=== PATIENT | male | born 1980 | race Caucasian/White ===

== ENCOUNTER 2019-12-29 06:20 | Day surgery (SDC) | payer BC ==
[2019-12-27 08:57] VITALS: BMI 22.8
[2019-12-29] MEDS ORDERED: BUPIVACAINE HCL/PF 2.5 MG/ML - 30 ML VIAL IJ ONE ×2 (07:40→10:29)
[2019-12-29] MEDS ORDERED: ONDANSETRON 4 MG/2 ML VIAL IVPUSH PRN (08:03)
[2019-12-29] MEDS ORDERED: MIDAZOLAM HCL 2 MG/2 ML SINGLE DOSE VIAL ONE (08:12)
[2019-12-29] MEDS ORDERED: KETOROLAC TROMETHAMINE 30 MG/1 ML VIAL ONE (08:13)
[2019-12-29] MEDS ORDERED: LIDOCAINE HCL/PF 2% SDV 5ML VIAL ONE (08:13)
[2019-12-29] MEDS ORDERED: ceFAZolin SODIUM 1 GM VIAL ONE (08:13)
[2019-12-29] MEDS ORDERED: DEXAMETHASONE SOD PHOSPHATE 4 MG/1 ML VIAL ONE (08:13)
[2019-12-29] MEDS ORDERED: LACTATED RINGERS SOLUTION 1,000 ML IV SCH (08:15)
[2019-12-29] MEDS ORDERED: BUPIVACAINE HCL/PF 0.25% (2.5MG/ML) 10 ML VIAL IJ ONE (08:46)
[2019-12-29] MEDS ORDERED: ONDANSETRON 4 MG/2 ML VIAL ONE (09:03)
[2019-12-29] MEDS ORDERED: oxyCODONE HCL 5 MG TABLET PO ONE ×2 (09:23)
[2019-12-29] MEDS ORDERED: PROPOFOL 20 ML ONE ×2 (09:55)
[2019-12-29] MEDS ORDERED: oxyCODONE HCL 5 MG TABLET ONE (10:29)
[2019-12-29 11:03] VITALS: TEMP 98.1
[2019-12-29 11:24] VITALS: BP 120/69; PULSE 46
--- NOTE | 2019-12-29 14:26 | OP ---
DATE OF OPERATION: 12/29/2019 SURGEON: Kymberly Prieto MD MECHANICAL FITTER: TRACY Yeung PREOPERATIVE DIAGNOSIS: Left distal biceps tendon/rupture. POSTOPERATIVE DIAGNOSIS: Left distal biceps tendon/rupture. PROCEDURE: Repair of distal biceps tendon rupture. FINDINGS: Avulsed biceps tendon, distal portion. DESCRIPTION OF PROCEDURE: Informed consent was obtained. Patient was taken to the operating room where the left upper extremity was prepped and draped in sterile fashion. Tourniquet was placed on the upper arm, inflated to 250 mmHg. Horizontal incision was made 4 cm distal to the elbow crease. The fascia was incised. Careful attention was made to avoid neurovascular structures. The biceps tendon was found and was debrided of local scar tissue. Two No. 2 FiberWires were used for interlocking stitches and tied into the ToggleLoc device. The radial neck and insertion of the biceps at the trochanter were noted. They were removed with soft tissue, and using the ToggleLoc system, a guidewire, 5 x 7-mm drill was used for drilling of the anterior cortex. The ToggleLoc device was placed through the anterior and to the posterior portal after a 4-mm hole through the posterior cortex. This was locked into position, had good stability and strength. The tendon was then secured into the bleeding bone bed along the anterior cortex. Wound was irrigated with copious amounts of irrigation. Layered closure with 2-0 Vicryl and 3-0 Prolene. Sterile dressing and splint were placed, and patient transferred to recovery without complication. The PA listed above was present and assisted at surgery. Their presence was absolutely medically necessary for the completion of the procedure. They helped hold the arthroscopy, pass instruments (and implants when indicated) and the procedure could not have been completed without their assistance. KYMBERLY PRIETO M.D. [id number]
== END 2019-12-29 11:40 | disposition home or self-care (01) ==
LOC: FASU 06:20
PROVIDERS: ATTEND Orthopaedic Surgery
PROC: 0LM40ZZ Reattachment of Left Upper Arm Tendon, Open Approach (ICD-10-PCS; principal; 2019-12-29 08:07)
DX: M66.812 Spontaneous rupture of other tendons, left shoulder (principal)
CPT/HCPCS: 94760